=== PATIENT | female | born 1945 | race Caucasian/White ===

== ENCOUNTER → 2016-11-14 | Outpatient (CLI) | payer MEDICARE, OTHER | END | disposition home or self-care (01) | LOC: GMAJ 14:09 | PROVIDERS: ATTEND Family Medicine | DX: I10 Essential (primary) hypertension (principal); C44.311 Basal cell carcinoma of skin of nose; M10.9 Gout, unspecified ==

== ENCOUNTER → 2017-06-15 | Outpatient (CLI) | payer MEDICARE, OTHER | END | disposition home or self-care (01) | LOC: GMAJ 11:05 | PROVIDERS: ATTEND Family Medicine | DX: M10.9 Gout, unspecified (principal); I10 Essential (primary) hypertension ==

== ENCOUNTER → 2017-11-22 | Outpatient (CLI) | payer MEDICARE, OTHER ==
--- NOTE | 2017-11-22 14:48 | MAM ---
Screening BILATERAL MAMMOGRAMS HISTORY: SCREENING. No personal nor first-order familial history of breast cancer COMPARISON: August 15, 2016, August 10, 2015 TECHNIQUE: Digital 2-D mammograms , and 3-D tomosynthesis,1 of both breasts were performed in CC and MLO orientations. Mammo CAD analysis also performed. FINDINGS: Heterogeneously dense fibroglandular tissue identified in both breasts. Benign microcalcifications scattered in both breasts. No obvious mass lesion or concerning microcalcifications or architectural distortion detected in either breast. IMPRESSION: No mammographic evidence of malignancy in either breast. BI-RADS: 2, benign findings. Follow-up: Annual surveillance recommended for bilateral breasts. Electronically signed by: Dung Maravilla MD 11/22/2017 2:47 PM CDT
== END ==
LOC: MAMMO 10:52
PROVIDERS: ATTEND Family Medicine
DX: Z12.31 Encounter for screening mammogram for malignant neoplasm of breast (principal)

== ENCOUNTER → 2018-01-01 | Outpatient (CLI) | payer MEDICARE, OTHER | LOC: GMAJ 14:43 | PROVIDERS: ATTEND Family Medicine | DX: M10.9 Gout, unspecified (principal) ==

== ENCOUNTER → 2018-01-29 | Outpatient (CLI) | payer MEDICARE, OTHER ==
--- NOTE | 2018-01-29 16:34 | MRI ---
EXAM DESCRIPTION: Lumbar Spine w/o Contrast : Magnetic Resonance Imaging. CLINICAL HISTORY: INTERVERTEBRAL DISC DISPLACEMENT COMPARISON: MRI scan lumbar spine 03/26/2009. TECHNIQUE: Multiplanar, multiple standard sequences, non contrast MRI, lumbar spine. FINDINGS: L5-S1: Anterior Modic type III endplate reactive changes loss and disc space. Anterior disc bulge and endplate ridging. Edema in the anterior disc. Soft tissue edema abutting the anterior disc space. Desiccation in the remainder of the disc with less disc space loss. Posterior T2 weighted disc signal with minimal posterior bulge more to the right of midline. Mild facet arthrosis and ligament hypertrophy with mild canal narrowing. Modic type II endplate reactive changes superior disc margin. Disc osteophyte complex abutting the nerve root in the left foramen. Mild narrowing right foramen. L4-5: Disc desiccation with disc space maintained. No significant bulge into the canal with minimal bulge into the left foramen which is minimally narrowed. Right foramen is patent. Posterior facet arthrosis and minimal flavum ligament hypertrophy with mild canal narrowing. L3-4: Disc desiccation and minimal disc space loss with endplate concavities. Flavum ligament hypertrophy and minimal facet arthrosis. Bilateral mild foraminal narrowing and mild canal narrowing. L2-3: Disc desiccation with disc space preserved. No significant bulging. Posterior flavum ligament hypertrophy and facet arthrosis with mild canal narrowing. Bilateral foramina are patent. L1-2: Disc desiccation with no disc space loss. Posterior broad-based 4 mm disc bulge. Flavum ligament hypertrophy and minimal facet arthrosis. Mild to moderate canal narrowing. Bilateral foramina are patent. Conus terminates at L1. T12-L1: Disc desiccation with disc space preserved. No significant bulging. Posterior elements unremarkable. Canal and foramina are patent. No scoliosis with normal lordosis. Paravertebral soft tissues bilateral spinal extensor muscle atrophy.. Normal marrow signal in the remaining vertebral bodies and the posterior elements. Vertebral bodies are not compressed at any level. IMPRESSION: 1. Anterior advanced spondylosis L5-S1 which has progressed since the prior study with disc space loss. Edema in the anterior disc. Edema in the soft tissues abutting the anterior and anterior lateral soft tissues. Cannot exclude an inflammatory versus infectious discitis. Consider correlation with ESR and C-reactive protein tests. Posterior disc bulge with annular fissure. Left side disc osteophyte complex abutting the left L5 nerve in the foramen. Correlate for left L5 radiculopathy. 2. L4-5 disc desiccation and minimal posterior bulge. Left foramen narrowing and mild canal narrowing. 3. Remaining discs with desiccation. Hypertrophy of the posterior elements contributing to canal narrowing. Posterior broad-based disc bulge L1 to mild to moderate canal narrowing. Electronically signed by: Pradeep Lawson MD 01/29/2018 4:33 PM CDT
== END ==
LOC: MRI 10:00
PROVIDERS: ATTEND Family Medicine
DX: M51.27 Other intervertebral disc displacement, lumbosacral region (principal); M47.9 Spondylosis, unspecified

== ENCOUNTER → 2018-02-06 | Outpatient (CLI) | payer MEDICARE, OTHER | LOC: GMAJ 11:52 | PROVIDERS: ATTEND Family Medicine | DX: M51.27 Other intervertebral disc displacement, lumbosacral region (principal) ==

== ENCOUNTER → 2018-02-09 | Outpatient (CLI) | payer MEDICARE, OTHER ==
--- NOTE | 2018-02-10 18:55 | US ---
EXAM DESCRIPTION: Extremity,Lower LT Arteries: Ultrasound. CLINICAL HISTORY: I70.213 COMPARISON: Ultrasound deep venous lower extremities same visit. TECHNIQUE: Doppler evaluation of the left lower extremity arterial flow waveforms and velocities. FINDINGS: Arterial waveforms in the left lower extremity are triphasic from the left common femoral artery to the left popliteal artery. Biphasic waveforms in the left peroneal artery and the posterior tibialis and dorsalis pedis arteries.. Comments: Velocities are unremarkable. IMPRESSION: Doppler ultrasound evaluation of the left lower extremity arterial system showing no evidence of significant atherosclerotic occlusive disease. Electronically signed by: Pradeep Lawson MD 02/10/2018 6:53 PM CDT
--- NOTE | 2018-02-12 08:40 | US ---
EXAM DESCRIPTION: Venous,Lower Extremity LT CLINICAL HISTORY: I70.213. Atherosclerosis of [place] arteries of extremities with intermittent claudication, bilateral legs. COMPARISON: None. TECHNIQUE: Doppler evaluation of the left lower extremity arterial flow waveforms and velocities. FINDINGS: Arterial waveforms in the left lower extremity are triphasic from the left common femoral artery through the left popliteal artery. Biphasic in the left peroneal artery posterior tibial artery and dorsalis pedis artery.. Comments: No color turbulent flow or spectral broadening. IMPRESSION: Ultrasound Doppler of the left lower extremity arterial systems showing no evidence of significant atherosclerotic occlusive disease. Electronically signed by: Pradeep Lawson MD 02/12/2018 8:39 AM CDT
== END ==
LOC: US 09:30
PROVIDERS: ATTEND Family Medicine
DX: R09.89 Other specified symptoms and signs involving the circulatory and respiratory systems (principal); I70.213 Atherosclerosis of native arteries of extremities with intermittent claudication, bilateral legs; I10 Essential (primary) hypertension

== ENCOUNTER → 2018-06-06 | Outpatient (CLI) | payer MEDICARE, OTHER | LOC: GMAJ 10:38 | PROVIDERS: ATTEND Family Medicine | DX: M10.9 Gout, unspecified (principal) ==

== ENCOUNTER → 2018-06-20 | Outpatient (CLI) | payer MEDICARE, OTHER ==
--- NOTE | 2018-06-21 11:33 | US ---
US HEAD NECK SOFT TISSUE CLINICAL STATEMENT: THYROID NODULE. COMPARISON: None FINDINGS: Size right thyroid lobe: 4.3 x 1.9 x 1.7 cm Size left thyroid lobe: 4.7 x 1.6 x 1.1 cm Size isthmus: 0.3 cm Estimated total number of nodules greater than or equal to 1 cm: None. Nodule 1: Size: 4 x 3 x 3 cm Location: Right Lower Composition: cystic or completely cystic: 0 points Echogenicity: anechoic: 0 points Shape: wider than tall: 0 points Margins: smooth: 0 points Echogenic foci: none: 0 points ACR Total Points: 0; ACR TI-RADS risk category: TR1 - benign nodule Nodule 2: Size: 0.4 x 0.4 x 0.4 cm Location: Right Lower Composition: solid or almost completely solid: 2 points Echogenicity: very hypoechoic: 3 points Shape: wider than tall: 0 points Margins: ill-defined: 0 points Echogenic foci: none: 0 points ACR Total Points: 5; ACR TI-RADS risk category: TR4 - moderately suspicious nodule. Nodule 3: Size: 0.6 x 0.5 x 0.5 cm Location: Left Mid Composition: cystic or completely cystic: 0 points Echogenicity: anechoic: 0 points Shape: wider than tall: 0 points Margins: smooth: 0 points Echogenic foci: none: 0 points ACR Total Points: 0; ACR TI-RADS risk category: TR1 - benign nodule Nodule 4: Size: 0.4 x 0.4 x 0.4 cm Location: Left Mid Composition: cystic or completely cystic: 0 points Echogenicity: anechoic: 0 points Shape: wider than tall: 0 points Margins: smooth: 0 points Echogenic foci: peripheral calcifications: 2 points ACR Total Points: 2; ACR TI-RADS risk category: TR2 - nonsuspicious nodule. In the soft tissue around the thyroid gland, there is no evidence of distinct solid mass or distinct cyst. No parenchymal edema or large calcifications. No overlying skin changes. No abnormal vascularity. IMPRESSION: 1. Nodule 1: ACR TI-RADS 2017 Category 0. Recommend: No further follow-up. . Please see ACR TI-RADS 2017 recommendations below*. 2. Nodule 2: ACR TI-RADS 2017 Category 4. Recommend: No further follow-up. 3. Nodule 3: ACR TI-RADS 2017 Category 0. Recommend: No further follow-up. 4. Nodule 4: ACR TI-RADS 2017 Category 2. Recommend: No further follow-up. Soft tissues around the thyroid gland are unremarkable. *ACR TI-RADS 2017 Recommendations: TR1: No FNA or follow up TR2: No FNA or follow up TR3: FNA if >/= 2.5 cm, follow up if 1.5 - 2.4 cm in 1, 3, and 5 years TR4: FNA if >/= 1.5 cm, follow up if 1.0 - 1.4 cm in 1, 2, 3, and 5 years TR5: FNA if >/= 1.0 cm, follow up if 0.5 - 0.9 cm every year for 5 years ACR TI-RADS recommends that no more than two nodules with the highest ACR TI-RADS total point should be biopsied and no more than four nodules should be followed. Electronically signed by: Pradeep Lawson MD 06/21/2018 11:31 AM CDT
== END ==
LOC: US 09:47
PROVIDERS: ATTEND Family Medicine
DX: E04.1 Nontoxic single thyroid nodule (principal)

== ENCOUNTER → 2018-12-25 | Outpatient (CLI) | payer MEDICARE, OTHER ==
--- NOTE | 2018-12-26 16:00 | MAM ---
EXAM DESCRIPTION: 3D Screening BILATERAL : Digital Mammography. CLINICAL HISTORY: 73 years Female ANNUAL SCREENING no complaints. No personal or family history of breast cancer. Childbirth. Postmenopausal. Has taken HRT 5 or more years ago. Prior benign right breast biopsy. Lifetime risk of developing breast cancer (Tyrer-Cuzick model)(%): 7.6. COMPARISON: Bilateral screening digital breast tomosynthesis 01/22/2018. TECHNIQUE: Bilateral CC and MLO projection full-field images, digital tomosynthesis mammographic technique. Bilateral digital 2-D full-field MLO images. CAD not available for tomosynthesis or 2-D images. FINDINGS: The breast parenchymal density pattern is: Extremely dense breast tissue, which lowers the sensitivity of mammography. No skin thickening or nipple retraction. Bilateral solitary microcalcifications. No new focal, stellate mass or density, focal asymmetry , and no suspicious microcalcifications bilaterally. Stable mammograms compared to prior study. IMPRESSION: Benign exam. BIRAD CATEGORY: 2 BENIGN FINDINGS. RECOMMENDATIONS: FOLLOW UP: Routine digital bilateral mammographic screening, one year interval from December 2018. Written communication explaining the IMPRESSION and follow-up, will be mailed to the patient and referring health care provider. The FINDINGS and the FOLLOW-UP plan were reviewed in person with the patient after the examination. According to the [employer], yearly mammograms are recommended starting at age 40 and continuing as long as a woman is in good health. Any breast change noted on a breast self-exam should be reported promptly to the patient's healthcare provider. Breast MRI is recommended for women with an approximately 20-25% or greater lifetime risk of breast cancer, including women with a strong family history of breast or ovarian cancer and women who have been treated for Hodgkin's disease. A negative mammographic report should not delay tissue diagnosis in patients with significant clinical history or physical findings. Extremely dense breast tissue limits the sensitivity of digital mammography. Electronically signed by: Pradeep Lawson MD 12/26/2018 3:56 PM CDT
== END ==
LOC: MAMMO 10:30
PROVIDERS: ATTEND Family Medicine
DX: Z12.31 Encounter for screening mammogram for malignant neoplasm of breast (principal)

== ENCOUNTER → 2019-12-16 | Outpatient (CLI) | payer MEDICARE, OTHER | LOC: BFHH 10:36 | PROVIDERS: ATTEND Family Medicine | DX: I10 Essential (primary) hypertension (principal); I48.0 Paroxysmal atrial fibrillation; M25.50 Pain in unspecified joint; M10.9 Gout, unspecified; E04.1 Nontoxic single thyroid nodule; I70.219 Atherosclerosis of native arteries of extremities with intermittent claudication, unspecified extremity; I70.1 Atherosclerosis of renal artery; Z79.899 Other long term (current) drug therapy ==

== ENCOUNTER 2020-01-15 20:23 | Emergency (ER) | payer MEDICARE, OTHER ==
[2020-01-15 20:44] VITALS: O2SAT 99
--- NOTE | 2020-01-15 20:48 | ED.PDOC ---
History of Present Illness - General Chief Complaint: Bite: Animal/Insect/Human Time Seen by Provider: 01/15/20 20:45 Source: patient Exam Limitations: no limitations - History of Present Illness Initial Comments: 74 y/o female bitten by her cat this morning on her L hand as she was playing with it. It was the neighbor's cat and she is unsure about it's vaccination status. She reports progressive and swelling Timing/Duration: this morning Severity: moderate Location: hands Associated Symptoms: swelling/mass/lumps Allergies/Adverse Reactions: Allergies Morphine Allergy (Verified 03/30/15 13:50) Home Medications: Ambulatory Orders Aspirin [Aspirin EC] 81 mg PO DAILY 04/07/14 Metoprolol Succinate [Toprol Xl] 100 mg PO BEDTIME 04/07/14 Tramadol HCl 50 mg PO Q6H PRN 04/07/14 Valsartan-Hydrochlorothiazide [Diovan Hct 160-25 mg] 1 tab PO DAILY 04/07/14 Rivaroxaban [Xarelto] 15 mg PO DAILY 03/30/15 Digoxin [Lanoxin Tab] 0.125 mg PO DAILY 04/20/15 Acetaminophen W/ Codeine [Tylenol W/ CODEINE #3] 1 - 2 ea PO Q8H PRN #12 04/28/15 Ibuprofen [Motrin Tab] 600 mg PO Q8H #12 tab 04/28/15 Amoxicillin & Pot Clavulanate [Augmentin Tab] 875 mg PO BID 10 Days #20 tab 01/15/20 Review of Systems - Review of Systems Constitutional: States: no symptoms reported EENTM: States: no symptoms reported Respiratory: States: no symptoms reported Cardiology: States: no symptoms reported Gastrointestinal/Abdominal: States: no symptoms reported Genitourinary: States: no symptoms reported Musculoskeletal: States: no symptoms reported Skin: States: other - v shaped laceration to dorso-lateral L hand. swelling and a blush of erythema Neurological: States: no symptoms reported Past Medical History (General) - Patient Medical History Hx Seizures: No Hx Stroke: No Hx Dementia: No Hx Asthma: No Hx of COPD: No Hx Cardiac Disorders: Yes - A Fib Hx Congestive Heart Failure: No Hx Pacemaker: No Hx Hypertension: Yes Hx Thyroid Disease: No Hx Diabetes: No Hx Gastroesophageal Reflux: No Hx Renal Disease: No Hx Cancer: No Hx of HIV: No Hx Hepatitis C: No Hx MRSA: No Surgical History: Hysterectomy, other - Vaccination History Hx Tetanus, Diphtheria Vaccination: No Hx Influenza Vaccination: Yes Hx Pneumococcal Vaccination: Yes - Social History Hx Tobacco Use: No Hx Chewing Tobacco Use: No Hx Alcohol Use: No Hx Substance Use: No Hx Depression: No Feels Threatened In Home Enviroment: No Feels Threatened In a Relationship: No Hx Physical Abuse: No Hx Emotional Abuse: No Hx Suspected Abuse: No - Female History Patient is a Female of Child Bearing Age (10 -59 yrs old): No Family Medical History - Family History Mother Family History: No Known Living Status: Age at (years of age): 94 Cause of : cva Hx Family Congestive Heart Failure: Yes Father Living Status: Age at (years of age): 80 Cause of : cva Physical Exam - Physical Exam General Appearance: Alert, No apparent distress Eyes, Ears, Nose, Throat Exam: normal ENT inspection Neck: full range of motion, supple Respiratory: no respiratory distress Skin Problem Location: other - laceration to dorso-lateral L hand Departure - Departure Clinical Impression: Bite wound Disposition: Discharge to Home or Self Care Condition: Good Departure Forms: ED Discharge - Pt. Copy, Patient Portal Self Enrollment Instructions: DI for Animal Bites Referrals: Landon Guo MD [Primary Care Provider] - 1-2 Weeks Prescriptions: Amoxicillin & Pot Clavulanate [Augmentin Tab] 875 mg PO BID 10 Days #20 tab Home Medications: Ambulatory Orders Aspirin [Aspirin EC] 81 mg PO DAILY 04/07/14 Metoprolol Succinate [Toprol Xl] 100 mg PO BEDTIME 04/07/14 Tramadol HCl 50 mg PO Q6H PRN 04/07/14 Valsartan-Hydrochlorothiazide [Diovan Hct 160-25 mg] 1 tab PO DAILY 04/07/14 Rivaroxaban [Xarelto] 15 mg PO DAILY 03/30/15 Digoxin [Lanoxin Tab] 0.125 mg PO DAILY 04/20/15 Acetaminophen W/ Codeine [Tylenol W/ CODEINE #3] 1 - 2 ea PO Q8H PRN #12 04/28/15 Ibuprofen [Motrin Tab] 600 mg PO Q8H #12 tab 04/28/15 Amoxicillin & Pot Clavulanate [Augmentin Tab] 875 mg PO BID 10 Days #20 tab 01/15/20
[2020-01-15] MEDS: AMOXICILLIN & POT CLAVULANATE 875 MG TAB PO ONE (21:05)
[2020-01-15 21:15] VITALS: BP 182/98; TEMP 97.3
== END 2020-01-15 21:16 | disposition home or self-care (01) ==
LOC: ER 20:23
DX: S61.452A Open bite of left hand, initial encounter (principal); I48.91 Unspecified atrial fibrillation; I10 Essential (primary) hypertension; Z79.82 Long term (current) use of aspirin; W55.01XA Bitten by cat, initial encounter; Y92.9 Unspecified place or not applicable

== ENCOUNTER → 2020-01-21 | Outpatient (CLI) | payer MEDICARE, OTHER ==
--- NOTE | 2020-01-23 16:40 | MAM ---
EXAM DESCRIPTION: 3D Screening BILATERAL : Digital Mammography. CLINICAL HISTORY: 74 years Female ANNUAL SCREENING . No complaints. No personal or family history of breast cancer. Menarche age 16. Childbirth age 32. Menopause age 44. HRT 5 or more years ago. Prior benign right breast biopsy. Lifetime risk of developing breast cancer (Tyrer-Cuzick model)(%): 6.8. COMPARISON: Bilateral screening digital breast tomosynthesis December 2018 and 2-D digital screening bilateral mammography November 2017.. TECHNIQUE: Bilateral CC and MLO projection full-field images, digital tomosynthesis mammographic technique. Bilateral digital 2-D full-field MLO images. CAD available for 2-D images. FINDINGS: The breast parenchymal density pattern is: Extremely dense breast tissue, which lowers the sensitivity of mammography. No skin thickening or nipple retraction. Solitary microcalcifications. Asymmetry of increased microcalcifications in the upper outer quadrant of the posterior right breast but stable. No new focal, stellate mass or density, focal asymmetry , and no suspicious microcalcifications bilaterally. Stable mammograms compared to prior study. IMPRESSION: Benign exam. BIRAD CATEGORY: 2 BENIGN FINDINGS. RECOMMENDATIONS: FOLLOW UP: Routine digital bilateral mammographic screening, one year interval from January 2020. Written communication explaining the IMPRESSION and follow-up, will be mailed to the patient and referring health care provider. According to the [employer], yearly mammograms are recommended starting at age 40 and continuing as long as a woman is in good health. Any breast change noted on a breast self-exam should be reported promptly to the patient's healthcare provider. Breast MRI is recommended for women with an approximately 20-25% or greater lifetime risk of breast cancer, including women with a strong family history of breast or ovarian cancer and women who have been treated for Hodgkin's disease. A negative mammographic report should not delay tissue diagnosis in patients with significant clinical history or physical findings. Extremely dense breast tissue limits the sensitivity of digital mammography. Electronically signed by: Pradeep Lawson MD 01/23/2020 4:38 PM CDT
== END ==
LOC: MAMMO 12:30
PROVIDERS: ATTEND Family Medicine
DX: Z12.31 Encounter for screening mammogram for malignant neoplasm of breast (principal)

== ENCOUNTER → 2020-05-15 | Outpatient (CLI) | payer MEDICARE, OTHER ==
--- NOTE | 2020-05-15 17:45 | RAD ---
EXAM DESCRIPTION: Pelvis CLINICAL HISTORY: HIP PAIN COMPARISON: 23 April 2020 TECHNIQUE: AP pelvis FINDINGS: Mild degenerative changes are observed in the sacroiliac joints. Marked degenerative arthritis is observed in the left hip. There is loss of joint space. Some subchondral cyst formation is observed. Acetabular osteophyte formation is noted. Degenerative changes are observed in the pubic symphysis. Mild degenerative changes are observed in the right hip. There is some acetabular osteophyte formation. No pelvic fracturing is observed. No hip fracturing is detected. IMPRESSION: Degenerative changes are observed in both hips more pronounced on the left. Electronically signed by: Lalito Mix MD 05/15/2020 5:44 PM CDT
--- NOTE | 2020-05-15 17:47 | RAD ---
EXAM DESCRIPTION: Hip,Left 2 Views CLINICAL HISTORY: PAIN IN LEFT HIP COMPARISON: 23 April 2020 TECHNIQUE: 2 views left FINDINGS: Moderately severe degenerative arthritis is observed in the left hip. Sclerosis of the acetabulum and femoral head are observed. Minimal subchondral cyst formation is observed in the femoral head. Femoral head osteophyte formation is observed. There is also acetabular osteophyte formation. Mild degenerative changes are seen in the sacroiliac joint. No fracture is detected. IMPRESSION: Moderately severe degenerative changes are observed in the left hip unchanged from the previous exam. Electronically signed by: Lalito Mix MD 05/15/2020 5:45 PM CDT
== END ==
LOC: RAD 08:41
PROVIDERS: ATTEND Orthopaedic Surgery
DX: M16.0 Bilateral primary osteoarthritis of hip (principal)

== ENCOUNTER → 2020-06-22 | Outpatient (CLI) | payer MEDICARE, OTHER | LOC: LAB.O 13:16 | PROVIDERS: ATTEND Orthopaedic Surgery | DX: Z01.818 Encounter for other preprocedural examination (principal) ==

== ENCOUNTER → 2020-07-22 | Day surgery (SDC) | payer MEDICARE, OTHER | LOC: AMB 05:32 | PROVIDERS: ATTEND Orthopaedic Surgery | DX: M25.552 Pain in left hip (principal); Z53.8 Procedure and treatment not carried out for other reasons ==

== ENCOUNTER → 2020-08-27 | Outpatient (CLI) | payer MEDICARE, OTHER | LOC: GMAJ 10:26 | PROVIDERS: ATTEND Family Medicine | DX: M10.9 Gout, unspecified (principal) ==

== ENCOUNTER 2020-10-02 06:30 | Emergency (ER) | payer MEDICARE, OTHER ==
[2020-10-02] MEDS ORDERED: ONDANSETRON ODT 8 MG TAB SL ONE (06:52)
--- NOTE | 2020-10-02 06:56 | ED.PDOC ---
History of Present Illness - General Source: patient Exam Limitations: no limitations - History of Present Illness Initial Comments: The patient is a 75-year-old female presented to the emergency room secondary to dizziness that caused her to fall this morning. The patient had dizziness in the middle of the night and then she got up this morning and fell. The patient does take a blood thinner for her atrial fibrillation. She reports that she is normally now in normal sinus rhythm. Blood pressures are elevated here but it is uncertain whether they were elevated before she fell or whether this is due to discomfort and anxiety. The patient has chronic left hip pain secondary to DJD but she has some increased pain there now currently. The patient is alert and oriented. She is pleasant and cooperative. She is not having any real point pain on her head. She does seem dazed however. No description by the patient given of definitive classic vertigo however. Timing/Duration: 1-3 hours Severity: moderate Improving Factors: nothing Worsening Factors: movement Associated Symptoms: malaise <Rebecca Leblanc - Last Filed: 10/02/20 06:54> <Epi Velasco - Last Filed: 10/02/20 11:49> - General Time Seen by Provider: 10/02/20 06:34 - History of Present Illness Allergies/Adverse Reactions: Allergies Morphine Adverse Reaction (Verified 10/02/20 07:14) Other Patient reprots face turning bright red and increased restlesness. Home Medications: Ambulatory Orders Aspirin [Aspirin EC] 81 mg PO DAILY 04/07/14 Tramadol HCl 50 mg PO Q6H PRN 04/07/14 Valsartan-Hydrochlorothiazide [Diovan Hct 160-25 mg] 160 mg PO DAILY 04/07/14 Rivaroxaban [Xarelto] 15 mg PO DAILY 03/30/15 Ibuprofen [Motrin Tab] 600 mg PO Q8H #12 tab 04/28/15 Acetaminophen [Tylenol] 500 mg PO BID PRN 07/16/20 Allopurinol [Zyloprim] 300 mg PO DAILY 07/16/20 Pantoprazole Tablet [Protonix] 40 mg PO ACBK 07/16/20 Sotalol HCl (Afib/Afl) [Sotalol HCl (AF)] 80 mg PO BID 07/16/20 Furosemide 20 mg PO DAILY 10/02/20 Review of Systems - Review of Systems Constitutional: States: malaise EENTM: States: no symptoms reported Respiratory: States: no symptoms reported Cardiology: States: no symptoms reported Gastrointestinal/Abdominal: States: no symptoms reported Genitourinary: States: no symptoms reported Musculoskeletal: States: see HPI Skin: States: no symptoms reported Neurological: States: see HPI Endocrine: States: no symptoms reported <Rebecca Leblanc - Last Filed: 10/02/20 06:54> Past Medical History (General) - Patient Medical History Hx Seizures: No Hx Stroke: No Hx Dementia: No Hx Asthma: No Hx of COPD: No Hx Cardiac Disorders: Yes - A Fib Hx Congestive Heart Failure: No Hx Pacemaker: No Hx Hypertension: Yes Hx Thyroid Disease: No Hx Diabetes: No Hx Gastroesophageal Reflux: No Hx Renal Disease: No Hx Cancer: No Hx of HIV: No Hx Hepatitis C: No Hx MRSA: No - Vaccination History Hx Tetanus, Diphtheria Vaccination: No Hx Influenza Vaccination: Yes Hx Pneumococcal Vaccination: Yes - Social History Hx Tobacco Use: No Hx Chewing Tobacco Use: No Hx Alcohol Use: No Hx Substance Use: No Hx Depression: No Hx Physical Abuse: No Hx Emotional Abuse: No Hx Suspected Abuse: No <Rebecca Leblanc - Last Filed: 10/02/20 06:54> Family Medical History - Family History Mother Family History: No Known Living Status: Age at (years of age): 94 Cause of : cva Hx Family Congestive Heart Failure: Yes Father Living Status: Age at (years of age): 80 Cause of : cva <Rebecca Leblanc - Last Filed: 10/02/20 06:54> Physical Exam - Physical Exam General Appearance: Alert, Comfortable, No apparent distress Ears, Nose, Throat: hearing grossly normal, normal pharynx Neck: full range of motion, supple Respiratory: lungs clear, normal breath sounds, no respiratory distress, no accessory muscle use Cardiovascular/Chest: normal peripheral pulses, regular rate, rhythm, no edema Peripheral Pulses: radial,right: 2+, radial,left: 2+ Gastrointestinal/Abdominal: non tender, soft Rectal Exam: deferred Extremity: normal range of motion - Given chronic limitations, no pedal edema, no calf tenderness, normal capillary refill Neurologic: electrical sign wirer II-XII nml as tested, alert, normal mood/affect, oriented x 3, other - No obvious pathological nystagmus. Head impulse testing does not really seem to localize to 1 side. No abnormal vertical skew deviation. Skin Exam: normal color Comments: Vital Signs - 24 hr 10/02/20 06:35 Temperature 97.4 F L Pulse Rate [ 75 Pulse Ox] Respiratory 16 Rate Blood Pressure 184/107 [R Arm] O2 Sat by Pulse 95 Oximetry <Nabeel Leblancelaina Barnhart - Last Filed: 10/02/20 06:54> Progress - Progress Progress: 10/02/20 06:58 The patient is a 75-year-old female presenting after a fall secondary to dizziness which does persist. Source of the dizziness is not certain at this point. Imaging and laboratory work has been ordered. The patient will be on telemetry monitoring. She does have hypertension currently may be followed and corrected if it does not improve with the patient relaxing. The patient will be followed by the oncoming ER physician. rebecca leblanc [phone] <Rebecca Leblanc - Last Filed: 10/02/20 06:54> - Progress Progress: Patients Crossbar Switch Adjuster is Dr. Fili Stone at [facility] in [place], [place]. [address] - I, Epi Velasco, DO #[id number], have assumed care of pt. Appropriate PPE of surgical mask, gown, gloves, and eye protection (if encounter >5 minutes) utilized with every patient encounter; in accordance with hospital policy. Presents for dizziness with concern for central vertigo. I will perform imaging, labs, EKG, possible Neurology consultation, provide appropriate pharmacotherapy, and continue to monitor/reassess. Dispo will depend on imaging, labs, ekg, possible consultation results and overall course in ED; however, admission is expected. 09:05 - Rechecked pt with spouse at bedside. NAD, VSS, resting comfortably in bed and is feeling much better. She still has some dizziness but states it is greatly improved. The left lower Chest Pain described as heaviness that she developed upon ED arrival has resolved as well; + associated bilateral perioral numbness. Pt is on ASA daily and does not require loading dose. I have discussed radiology results, lab results, my clinical impression, and diagnosis. I have also discussed plan for admission. Pt and spouse agree with plan. HEART score: 5. 0924 - Recheck pt. She has not taken her antihypertensives today. I will order them to get her BP controlled. 0928 - I have consulted with Neurology and discussed pt's case in ED along with current findings. He agrees pt is not a TPA candidate due to afib on xarelto and last known normal being before she went to bed last night. He will perform TeleNeuro exam shortly after seeing a couple more urgent patients first. 10:16 Dr. Ramin cota returned call after evaluating pt. He agrees pt needs and MRI to r/o posterior stroke and cerebellar involvement. He recommends holding the Xarelto until the MRI has been performed and results showing no stroke. 10:22 Hospitalist paged. 11:26 Hospitalist Jonathan Springer has returned call. He reports we do not have MRI available today and he has been unable to get ahold of the technicians. He recommends transfer for MRI. 11:35 I have consulted with physician at [facility] in [place], [place] and discussed pt's case in ED along with findings and consultation. He accepts pt transfer. - Results/Orders Results/Orders: EKG @0743: read @0741 (machine time discrepancy). NSR @ 67, left axis, QTc 471, [place] and QRS wnl, no ST elevations/depressions, nonspecific ST/T-wave changes. No STEMI. Compared with 04/07/2014 EKG: resolved AFib with RVR with increase in QTc interval; otherwise, no changes concerning for acute ischemia. 10/02/20 07:00 EKG STAT Laboratory Results - last 24 hr 10/02/20 10/02/20 10/02/20 07:30 07:30 07:30 WBC 5.4 RBC 4.14 L Hgb 12.5 Hct 38.5 MCV 93.0 MCH 30.1 MCHC 32.4 L RDW 14.9 H Plt Count 176 MPV 7.9 Absolute Neuts (auto) 3.60 Absolute Lymphs (auto) 1.20 Absolute Monos (auto) 0.40 Absolute Eos (auto) 0.20 Absolute Basos (auto) 0.10 Neutrophils % 65.9 Lymphocytes % 22.0 Monocytes % 6.9 Eosinophils % 4.2 Basophils % 1.0 PT 10.7 INR 1.08 PTT (SP) 27.0 Sodium 140 Potassium 3.9 Chloride 106 Carbon Dioxide 25 Anion Gap 12.9 BUN 15 Creatinine 0.74 BUN/Creatinine Ratio 20.3 H Random Glucose 106 H Serum Osmolality 280.6 Calcium 9.0 Magnesium Total Bilirubin 1.0 AST 23 ALT 16 Alkaline Phosphatase 60 Creatine Kinase 110 CK-MB (CK-2) 7.3 H* CK-MB (CK-2) % Not Reportable Troponin I < 0.02 B-Natriuretic Peptide 102.0 H Serum Total Protein 6.4 Albumin 3.9 Globulin 2.5 Albumin/Globulin Ratio 1.6 TSH Urine Color Urine Appearance Urine pH Ur Specific [place] Urine Protein Urine Glucose (UA) Urine Ketones Urine Blood Urine Nitrite Urine Bilirubin Urine Urobilinogen Ur Leukocyte Esterase Urine RBC Urine WBC Ur Epithelial Cells Urine Bacteria 10/02/20 10/02/20 10/02/20 07:30 09:32 09:45 WBC RBC Hgb Hct MCV MCH MCHC RDW Plt Count MPV Absolute Neuts (auto) Absolute Lymphs (auto) Absolute Monos (auto) Absolute Eos (auto) Absolute Basos (auto) Neutrophils % Lymphocytes % Monocytes % Eosinophils % Basophils % PT INR PTT (SP) Sodium Potassium Chloride Carbon Dioxide Anion Gap BUN Creatinine BUN/Creatinine Ratio Random Glucose Serum Osmolality Calcium Magnesium 1.8 Total Bilirubin AST ALT Alkaline Phosphatase Creatine Kinase CK-MB (CK-2) CK-MB (CK-2) % Troponin I < 0.02 B-Natriuretic Peptide Serum Total Protein Albumin Globulin Albumin/Globulin Ratio TSH 8.21 H Urine Color Yellow Urine Appearance Clear Urine pH 7.5 Ur Specific [place] 1.015 Urine Protein Negative Urine Glucose (UA) Negative Urine Ketones Negative Urine Blood Negative Urine Nitrite Negative Urine Bilirubin Negative Urine Urobilinogen 0.2 Ur Leukocyte Esterase Negative Urine RBC 0 Urine WBC 1-3 Ur Epithelial Cells 5-10 Urine Bacteria Rare Study: CT of the Head. Indication: dizziness, fall, hit head, on xarelto Technique: Axial CT images of the head were acquired without intravenous contrast. This exam was performed according to our departmental dose- optimization program, which includes automated exposure control, adjustment of the mA and/or kV according to patient size and/or use of iterative reconstruction technique. Comparison: None. Findings: No acute ischemia, acute hemorrhage, mass, mass effect, midline shift, or extra-axial fluid collection identified by CT. Ventricles are normal in configuration without hydrocephalus. Patchy hypoattenuation of the periventricular and subcortical white matter noted. This is nonspecific but most consistent with chronic microvascular ischemic change. Global parenchymal volume loss and intracranial atherosclerosis noted as well. Paranasal sinuses are adequately aerated. Mastoid air cells are adequately aerated. Osseous structures and soft tissues are unremarkable. Impression: No acute intracranial abnormality by CT. Senescent changes. Electronically signed by: Claudy Hopkins MD 10/02/2020 7:44 AM [employer] Study: CT cervical spine. Indication: dizziness, fall, hit head, on xarelto Technique: Axial CT images were acquired through the cervical spine without intravenous contrast. Coronal and sagittal reformats performed. This exam was performed according to our departmental dose-optimization program, which includes automated exposure control, adjustment of the mA and/or kV according to patient size and/or use of iterative reconstruction technique. Comparison: None Findings: Vertebral body height maintained. Straightening cervical spine. No acute fracture or subluxation. Subtle osseous fusion at C3-C4, C4-C5, C5-C6. Multilevel cervical disease noted an most pronounced at C6-C7 where there is severe bilateral neural foraminal narrowing and mild to moderate spinal canal narrowing. Atherosclerosis carotid arteries. Impression: No acute cervical fracture identified. Additional findings as above. Electronically signed by: Claudy Hopkins MD 10/02/2020 7:43 AM PAEDODONTIST Study: Single Frontal Radiograph of the Chest. Indication:dizziness, fall, afib hx Comparison: April 07, 2014 Impression: Heart size normal. Mild bilateral basal atelectasis, otherwise lungs clear. No pneumothorax. No acute osseous abnormality. Electronically signed by: Claudy Hopkins MD 10/02/2020 7:45 AM PAEDODONTIST 3 radiographs left elbow Indication: dizziness, fall, afib hx Comparison: None Impression: No acute fracture. Spurring of the medial and lateral humeral epicondyles noted. Mild spurring olecranon process. Electronically signed by: Claudy Hopkins MD 10/02/2020 7:41 AM PAEDODONTIST 2 radiographs left hip. Single radiograph pelvis. Indication: dizziness, fall, afib hx Comparison: None Impression: Severe left and moderate right hip osteoarthritis. Mild bilateral sacroiliac joint osteoarthritis. Lower lumbar disc disease. No acute fracture of the pelvis or left hip identified. Evaluation for fracture is limited given the degree of osteopenia. If high clinical concern for acute fracture, correlation with MRI recommended given its greater sensitivity in the osteopenic patient. If the patient cannot tolerate MRI imaging or more urgent imaging is required, CT could be performed, however it is less sensitive in the osteopenic patient when compared to MRI. Prema ctronically signed by: Claudy Hopkins MD 10/02/2020 7:46 AM PAEDODONTIST 1102 2 radiographs left hip. Single radiograph pelvis. Indication: dizziness, fall, afib hx Comparison: None Impression: Severe left and moderate right hip osteoarthritis. Mild bilateral sacroiliac joint osteoarthritis. Lower lumbar disc disease. No acute fracture of the pelvis or left hip identified. Evaluation for fracture is limited given the degree of osteopenia. If high clinical concern for acute fracture, correlation with MRI recommended given its greater sensitivity in the osteopenic patient. If the patient cannot tolerate MRI imaging or more urgent imaging is required, CT could be performed, however it is less sensitive in the osteopenic patient when compared to MRI. Electronically signed by: Caludy Hopkins MD 10/02/2020 7:46 AM PAEDODONTIST EXAM DESCRIPTION: CTA Head CLINICAL HISTORY: dizziness with concern for posterior circulation COMPARISON: CT head without contrast same day TECHNIQUE: Postcontrast CTA images of the head are obtained with 3-D MIP reconstructed images of the arterial vasculature. This exam was performed according to our departmental dose-optimization program, which includes automated exposure control, adjustment of the mA and/or kV according to patient size and/or use of iterative reconstruction technique . FINDINGS: Midline structures are not disp laced. Sulci are age-appropriate. No mass, mass effect, hydrocephalus, or acute intracranial hemorrhage. No abnormal enhancement. Normal opacification of the major venous anatomy. Visualized paranasal sinuses and mastoid air cells are unremarkable. Mild calcified plaque of the intracranial internal carotid arteries without high-grade or flow limiting stenosis. Normal branching of the major central intracranial arterial vasculature. Small anterior communicating artery seen. Prominent left posterior communicating artery. Vertebral arteries are codominant. Basilar artery shows no high-grade or flow limiting stenosis. No aneurysm or vascular malformation is seen. IMPRESSION: Mild calcified plaque of the intracranial internal carotid arteries is seen without high-grade or flow limiting stenosis. Otherwise unremarkable CTA of the head. Electronically signed by: Jayden Biggs MD 10/02/2020 9:03 AM PAEDODONTIST EXAM DESCRIPTION: CTA Neck CLINICAL HISTORY: dizziness with concern for posterior circulation COMPARISON: None. TECHNIQUE: Postcontrast CTA images of the neck are obtained with coronal and sagittal reconstructed images. 3-D MIP reconstructed images of the arterial vasculature are obtained. This exam was performed according to our departmental dose-optimization program, which includes automated exposure control, adjustment of the mA and/or kV according to patient size and/or use of iterative reconstruction technique . FINDINGS: Moderate scattered calcified plaque of the thoracic aortic arch is seen. Common origin of the right brachiocephalic artery and left common carotid artery seen with scattered calcified plaque of the great vessels. No high-grade or flow limiting stenosis of the proximal great vessels. Right common carotid artery unremarkable. Mild focal calcified plaque of the carotid bulb to proximal internal carotid artery seen without vessel narrowing. Mild smooth noncalcified plaque of the superior right ICA with less than 25% stenosis by an acid criteria. Left common carotid artery is unremarkable. Mild eccentric calcified and noncalcified plaque of the carotid bulb to proximal ICA is seen contributing to less than 25% stenosis by an acid criteria. The remainder of the cervical ICA is unremarkable. Vertebral arteries are codominant. No significant plaque. No vessel narrowing or stenosis is seen to the skull base. Moderate to severe disc space narrowing from C3 through C7 is seen. Fusion of the facet joints on the right from C2 through C6 and on the left at C2-3 and C4-5. Mild spinal canal stenosis at C5-6 and C6-7. Multilevel foraminal encroachment is seen most prominent on the left at C6-7. IMPRESSION: Mild atherosclerotic disease of the carotid arteries without high-grade or flow limiting stenosis by CTA criteria. The vertebral arteries are codominant and patent. Electronically signed by: Jayden Biggs MD 10/02/2020 9:08 AM [facility] Vital Signs - 24 hr 10/02/20 10/02/20 10/02/20 06:35 07:07 07:56 Temperature 97.4 F L Pulse Rate [ 75 75 63 Pulse Ox] Respiratory 16 16 16 Rate Blood Pressure 184/107 179/99 [R Arm] O2 Sat by Pulse 95 94 L Oximetry 10/02/20 10/02/20 10/02/20 09:00 10:00 11:08 Temperature Pulse Rate [ 65 65 62 Pulse Ox] Respiratory 14 14 16 Rate Blood Pressure 183/102 185/98 176/94 [R Arm] O2 Sat by Pulse 95 95 95 Oximetry <Epi Velasco - Last Filed: 10/02/20 11:49> Departure <Rebecca Leblanc Obey - Last Filed: 10/02/20 06:54> - Departure Time of Disposition: 09:14 <Epi Velasco - Last Filed: 10/02/20 11:49> - Departure Clinical Impression: Central nervous system origin vertigo, Elevated CK-MB level, ACS (acute coronary syndrome), Intermittent left-sided chest pain Fall at home Qualifiers: Encounter type: initial encounter Qualified Code(s): W19.XXXA - Unspecified fall, initial encounter; Y92.009 - Unspecified place in unspecified non- institutional (private) residence as the place of occurrence of the external cause Osteopenia Qualifiers: Osteopenia location: hip Laterality: bilateral Qualified Code(s): M85.851 - Other specified disorders of bone density and structure, right thigh; M85.852 - Other specified disorders of bone density and structure, left thigh Chronic hip pain Qualifiers: Laterality: left Qualified Code(s): M25.552 - Pain in left hip; G89.29 - Other chronic pain Disposition: Transfer to Hospital Condition: Good Referrals: Landon Guo MD [Primary Care Provider] - 1-2 Weeks Home Medications: Ambulatory Orders Aspirin [Aspirin EC] 81 mg PO DAILY 04/07/14 Tramadol HCl 50 mg PO Q6H PRN 04/07/14 Valsartan-Hydrochlorothiazide [Diovan Hct 160-25 mg] 160 mg PO DAILY 04/07/14 Rivaroxaban [Xarelto] 15 mg PO DAILY 03/30/15 Ibuprofen [Motrin Tab] 600 mg PO Q8H #12 tab 04/28/15 Acetaminophen [Tylenol] 500 mg PO BID PRN 07/16/20 Allopurinol [Zyloprim] 300 mg PO DAILY 07/16/20 Pantoprazole Tablet [Protonix] 40 mg PO ACBK 07/16/20 Sotalol HCl (Afib/Afl) [Sotalol HCl (AF)] 80 mg PO BID 07/16/20 Furosemide 20 mg PO DAILY 10/02/20 Decision To Admit - Decistion To Admit Decision to Admit Date: 10/02/20 Decision to Admit Time: 09:14 <Epi Velasco - Last Filed: 10/02/20 11:49> Transfer to Outside Facility - Transfer Information Decision to Transfer Date: 10/02/20 Decision to Transfer Time: 11:26 Reason for Transfer: MRI, ACS workup Accepting Facility: [facility] <Epi Velasco - Last Filed: 10/02/20 11:49>
--- NOTE | 2020-10-02 07:42 | RAD ---
3 radiographs left elbow Indication: dizziness, fall, afib hx Comparison: None Impression: No acute fracture. Spurring of the medial and lateral humeral epicondyles noted. Mild spurring olecranon process. Electronically signed by: Claudy Hopkins MD 10/02/2020 7:41 AM [facility]
--- NOTE | 2020-10-02 07:45 | CT ---
Study: CT cervical spine. Indication: dizziness, fall, hit head, on xarelto Technique: Axial CT images were acquired through the cervical spine without intravenous contrast. Coronal and sagittal reformats performed. This exam was performed according to our departmental dose-optimization program, which includes automated exposure control, adjustment of the mA and/or kV according to patient size and/or use of iterative reconstruction technique. Comparison: None Findings: Vertebral body height maintained. Straightening cervical spine. No acute fracture or subluxation. Subtle osseous fusion at C3-C4, C4-C5, C5-C6. Multilevel cervical disease noted an most pronounced at C6-C7 where there is severe bilateral neural foraminal narrowing and mild to moderate spinal canal narrowing. Atherosclerosis carotid arteries. Impression: No acute cervical fracture identified. Additional findings as above. Electronically signed by: Claudy Hopkins MD 10/02/2020 7:43 AM ANALYTICAL SCIENTIST
--- NOTE | 2020-10-02 07:46 | CT ---
Study: CT of the Head. Indication: dizziness, fall, hit head, on xarelto Technique: Axial CT images of the head were acquired without intravenous contrast. This exam was performed according to our departmental dose-optimization program, which includes automated exposure control, adjustment of the mA and/or kV according to patient size and/or use of iterative reconstruction technique. Comparison: None. Findings: No acute ischemia, acute hemorrhage, mass, mass effect, midline shift, or extra-axial fluid collection identified by CT. Ventricles are normal in configuration without hydrocephalus. Patchy hypoattenuation of the periventricular and subcortical white matter noted. This is nonspecific but most consistent with chronic microvascular ischemic change. Global parenchymal volume loss and intracranial atherosclerosis noted as well. Paranasal sinuses are adequately aerated. Mastoid air cells are adequately aerated. Osseous structures and soft tissues are unremarkable. Impression: No acute intracranial abnormality by CT. Senescent changes. Electronically signed by: Claudy Hopkins MD 10/02/2020 7:44 AM IMPORT MANAGER
--- NOTE | 2020-10-02 07:46 | RAD ---
Study: Single Frontal Radiograph of the Chest. Indication:dizziness, fall, afib hx Comparison: April 07, 2014 Impression: Heart size normal. Mild bilateral basal atelectasis, otherwise lungs clear. No pneumothorax. No acute osseous abnormality. Electronically signed by: Claudy Hopkins MD 10/02/2020 7:45 AM [employer]
--- NOTE | 2020-10-02 07:48 | RAD ---
2 radiographs left hip. Single radiograph pelvis. Indication: dizziness, fall, afib hx Comparison: None Impression: Severe left and moderate right hip osteoarthritis. Mild bilateral sacroiliac joint osteoarthritis. Lower lumbar disc disease. No acute fracture of the pelvis or left hip identified. Evaluation for fracture is limited given the degree of osteopenia. If high clinical concern for acute fracture, correlation with MRI recommended given its greater sensitivity in the osteopenic patient. If the patient cannot tolerate MRI imaging or more urgent imaging is required, CT could be performed, however it is less sensitive in the osteopenic patient when compared to MRI. Electronically signed by: Claudy Hopkins MD 10/02/2020 7:46 AM [facility]
--- NOTE | 2020-10-02 07:48 | RAD ---
2 radiographs left hip. Single radiograph pelvis. Indication: dizziness, fall, afib hx Comparison: None Impression: Severe left and moderate right hip osteoarthritis. Mild bilateral sacroiliac joint osteoarthritis. Lower lumbar disc disease. No acute fracture of the pelvis or left hip identified. Evaluation for fracture is limited given the degree of osteopenia. If high clinical concern for acute fracture, correlation with MRI recommended given its greater sensitivity in the osteopenic patient. If the patient cannot tolerate MRI imaging or more urgent imaging is required, CT could be performed, however it is less sensitive in the osteopenic patient when compared to MRI. Electronically signed by: Claudy Hopkins MD 10/02/2020 7:46 AM [facility]
--- NOTE | 2020-10-02 09:04 | CT ---
EXAM DESCRIPTION: CTA Head CLINICAL HISTORY: dizziness with concern for posterior circulation COMPARISON: CT head without contrast same day TECHNIQUE: Postcontrast CTA images of the head are obtained with 3-D MIP reconstructed images of the arterial vasculature. This exam was performed according to our departmental dose-optimization program, which includes automated exposure control, adjustment of the mA and/or kV according to patient size and/or use of iterative reconstruction technique . FINDINGS: Midline structures are not displaced. Sulci are age-appropriate. No mass, mass effect, hydrocephalus, or acute intracranial hemorrhage. No abnormal enhancement. Normal opacification of the major venous anatomy. Visualized paranasal sinuses and mastoid air cells are unremarkable. Mild calcified plaque of the intracranial internal carotid arteries without high-grade or flow limiting stenosis. Normal branching of the major central intracranial arterial vasculature. Small anterior communicating artery seen. Prominent left posterior communicating artery. Vertebral arteries are codominant. Basilar artery shows no high-grade or flow limiting stenosis. No aneurysm or vascular malformation is seen. IMPRESSION: Mild calcified plaque of the intracranial internal carotid arteries is seen without high-grade or flow limiting stenosis. Otherwise unremarkable CTA of the head. Electronically signed by: Jayden Biggs MD 10/02/2020 9:03 AM [facility] [employer] [employer]
[2020-10-02] MEDS ORDERED: ASPIRIN (CHEWABLE) 81 MG TAB PO ONE (09:09)
--- NOTE | 2020-10-02 09:09 | CT ---
EXAM DESCRIPTION: CTA Neck CLINICAL HISTORY: dizziness with concern for posterior circulation COMPARISON: None. TECHNIQUE: Postcontrast CTA images of the neck are obtained with coronal and sagittal reconstructed images. 3-D MIP reconstructed images of the arterial vasculature are obtained. This exam was performed according to our departmental dose-optimization program, which includes automated exposure control, adjustment of the mA and/or kV according to patient size and/or use of iterative reconstruction technique . FINDINGS: Moderate scattered calcified plaque of the thoracic aortic arch is seen. Common origin of the right brachiocephalic artery and left common carotid artery seen with scattered calcified plaque of the great vessels. No high-grade or flow limiting stenosis of the proximal great vessels. Right common carotid artery unremarkable. Mild focal calcified plaque of the carotid bulb to proximal internal carotid artery seen without vessel narrowing. Mild smooth noncalcified plaque of the superior right ICA with less than 25% stenosis by an acid criteria. Left common carotid artery is unremarkable. Mild eccentric calcified and noncalcified plaque of the carotid bulb to proximal ICA is seen contributing to less than 25% stenosis by an acid criteria. The remainder of the cervical ICA is unremarkable. Vertebral arteries are codominant. No significant plaque. No vessel narrowing or stenosis is seen to the skull base. Moderate to severe disc space narrowing from C3 through C7 is seen. Fusion of the facet joints on the right from C2 through C6 and on the left at C2-3 and C4-5. Mild spinal canal stenosis at C5-6 and C6-7. Multilevel foraminal encroachment is seen most prominent on the left at C6-7. IMPRESSION: Mild atherosclerotic disease of the carotid arteries without high-grade or flow limiting stenosis by CTA criteria. The vertebral arteries are codominant and patent. Electronically signed by: Jayden Biggs MD 10/02/2020 9:08 AM [facility]
[2020-10-02] MEDS ORDERED: VALSARTAN 80 MG TAB PO ONE (09:31)
[2020-10-02] MEDS ORDERED: SOTALOL 80 MG TAB PO ONE (09:31)
[2020-10-02 12:12] VITALS: BP 163/95; TEMP 98.1; O2SAT 97
== END 2020-10-02 12:12 | disposition short-term general hospital (02) ==
LOC: ER 06:30
DX: H81.4 Vertigo of central origin (principal); I24.9 Acute ischemic heart disease, unspecified; M25.552 Pain in left hip; G89.29 Other chronic pain; R74.8 Abnormal levels of other serum enzymes; M85.851 Other specified disorders of bone density and structure, right thigh; M85.852 Other specified disorders of bone density and structure, left thigh; M47.812 Spondylosis without myelopathy or radiculopathy, cervical region; I65.29 Occlusion and stenosis of unspecified carotid artery; R20.0 Anesthesia of skin; M16.11 Unilateral primary osteoarthritis, right hip; I48.91 Unspecified atrial fibrillation; I10 Essential (primary) hypertension; Z20.822 Contact with and (suspected) exposure to COVID-19; Z79.01 Long term (current) use of anticoagulants; Z79.82 Long term (current) use of aspirin; Z79.899 Other long term (current) drug therapy; Z88.5 Allergy status to narcotic agent